=== PATIENT | male | born 1990 | race Two or more races ===

== ENCOUNTER 2022-03-17 14:06 | Emergency (ER) | payer MEDICAID, OTHER ==
[~2022-03-17] VITALS: Ht 170.2 cm; Wt 104.3 kg
--- NOTE | 2022-03-17 14:50 | NUR ---
BIBS W/ C/O DEPRESSION AND SUICIDAL IDEATION. 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 [facility]. CHANGED IN GOWN AND SECURITY CALLED FOR WANDING
[2022-03-17 15:07] LABS: BASOPHILS % (AUTO) 0.3 % (0.0-2.0); EOSINOPHILS % (AUTO) 0.7 % (0.0-6.0); HEMATOCRIT 48 % (39-51); HEMOGLOBIN 16.1 g/dL (13.5-17.5); LYMPHOCYTES # (AUTO) 1.9 K/uL (0.8-4.8); LYMPHOCYTES % (AUTO) 21.5 % (20.0-44.0); MEAN CORPUSCULAR HGB CONC 33 g/dl (31.0-36.0); MEAN CORPUSCULAR VOLUME 97 fL (80-96); MONOCYTES # (AUTO) 0.5 K/uL (0.1-1.30); MONOCYTES % (AUTO) 5.7 % (2.0-12.0); NEUTROPHILS # (AUTO) 6.4 K/uL (1.8-8.9); NEUTROPHILS % (AUTO) 71.8 % (43.0-81.0); PLATELET COUNT (AUTO) 376 K/uL (150-450); RED BLOOD CELL COUNT(AUTO) 4.97 MIL/uL (4.5-6.0); WHITE BLOOD COUNT (AUTO) 8.9 K/uL (4.3-11.0)
[2022-03-17 15:10] LABS: BILIRUBIN,URINE NEGATIVE (NEGATIVE); COLOR,URINE YELLOW (YELLOW); LEUKOCYTE ESTERASE ,URINE NEGATIVE (NEGATIVE); NITRITE, URINE NEGATIVE (NEGATIVE); PROTEIN,URINE NEGATIVE (NEGATIVE); UGLUCOSE NEGATIVE (NEGATIVE); UROBILINOGEN,URINE 0.2 EU/dL (0.2)
[2022-03-17 15:23] LABS: RBC,URINE 0-2 /HPF (0-2); WBC,URINE 0-2 /HPF (0-3)
[2022-03-17 15:24] LABS: BACTERIA,URINE 1+ /HPF (None Seen); COARSE GRANULAR CASTS,URINE Few /LPF (None Seen); SQUAMOUS EPITHELIAL CELL,UR Few /HPF (None Seen)
[2022-03-17 15:43] LABS: ALANINE AMINOTRANSFERASE 27 U/L (12-78); ALBUMIN 4.4 g/dL (3.4-5.0); ALCOHOL, BLOOD < 3 mg/dL (0-0); ALKALINE PHOSPHATASE 74 U/L (46-116); ASPARTATE AMINOTRANSFERASE 17 U/L (15-37); BILIRUBIN,DIRECT 0.1 mg/dL (0.0-0.2); BILIRUBIN,TOTAL 0.3 mg/dL (0.2-1.0); TOTAL PROTEIN, SERUM 7.9 g/dL (6.4-8.2)
[2022-03-17 15:47] LABS: CALCIUM, SERUM 9.1 mg/dL (8.5-10.1); CARBON DIOXIDE 28 mmol/L (21-32); CHLORIDE 104 mmol/L (98-107); GLUCOSE 84 mg/dL (74-106); POTASSIUM 3.9 mmol/L (3.5-5.1); SODIUM SERUM 141 mmol/L (136-145); UREA NITROGEN, BLOOD 16 mg/dL (7-18)
[2022-03-17 15:48] LABS: ACETAMINOPHEN 0 ug/ml (10-30)
--- NOTE | 2022-03-17 16:26 | NUR ---
ADI faxed clinicals to [facility] TEL:[phone] fax:[phone] for for voluntary psychiatric treatment at [facility] [[facility] [place] [address] FAX:[phone]].
--- NOTE | 2022-03-17 17:25 | NUR ---
CALL FROM ART,SRIRAM PATEL,ACCEPTED AT [facility] UNDER DR EDMOND, REPORT TO [phone]
--- NOTE | 2022-03-17 18:30 | NUR ---
PICKED UP BY TRANSPORTATION FOR [facility]. PT IN STABLE CONDITION.
[2022-03-17 18:40] VITALS: BP 137/84
== END 2022-03-17 18:40 ==
LOC: ER 14:08
DX: R45.851 Suicidal ideations (principal); F31.9 Bipolar disorder, unspecified; Z20.822 Contact with and (suspected) exposure to COVID-19
CPT/HCPCS: 99285; 85025; 80048; 80076; 81001; 36415; 87426; 80143; 80320; 80307; C9803; G0480

== ENCOUNTER 2022-04-14 16:39 | Emergency (ER) | payer SELFPAY ==
[~2022-04-14] VITALS: Ht 170.2 cm; Wt 125.2 kg
--- NOTE | 2022-04-14 17:01 | NUR ---
COVID SWAB COLLECTED AND SENT TO LAB
[2022-04-14 17:12] LABS: BASOPHILS % (AUTO) 0.5 % (0.0-2.0); EOSINOPHILS % (AUTO) 0.7 % (0.0-6.0); HEMATOCRIT 47 % (39-51); HEMOGLOBIN 16.3 g/dL (13.5-17.5); LYMPHOCYTES # (AUTO) 1.8 K/uL (0.8-4.8); LYMPHOCYTES % (AUTO) 20.1 % (20.0-44.0); MEAN CORPUSCULAR HGB CONC 34 g/dl (31.0-36.0); MEAN CORPUSCULAR VOLUME 94 fL (80-96); MONOCYTES # (AUTO) 0.7 K/uL (0.1-1.30); MONOCYTES % (AUTO) 7.5 % (2.0-12.0); NEUTROPHILS # (AUTO) 6.3 K/uL (1.8-8.9); NEUTROPHILS % (AUTO) 71.2 % (43.0-81.0); PLATELET COUNT (AUTO) 373 K/uL (150-450); RED BLOOD CELL COUNT(AUTO) 5.02 MIL/uL (4.5-6.0); WHITE BLOOD COUNT (AUTO) 8.9 K/uL (4.3-11.0)
[2022-04-14 17:31] LABS: ALANINE AMINOTRANSFERASE 36 U/L (12-78); ALBUMIN 4.1 g/dL (3.4-5.0); ALCOHOL, BLOOD < 3 mg/dL (0-0); ALKALINE PHOSPHATASE 86 U/L (46-116); ASPARTATE AMINOTRANSFERASE 16 U/L (15-37); BILIRUBIN,DIRECT 0.1 mg/dL (0.0-0.2); BILIRUBIN,TOTAL 0.4 mg/dL (0.2-1.0); CALCIUM, SERUM 8.9 mg/dL (8.5-10.1); CARBON DIOXIDE 27 mmol/L (21-32); CHLORIDE 104 mmol/L (98-107); CREATININE 1.2 mg/dL (0.6-1.3); GLUCOSE 85 mg/dL (74-106); POTASSIUM 3.7 mmol/L (3.5-5.1); SODIUM SERUM 137 mmol/L (136-145); TOTAL PROTEIN, SERUM 7.7 g/dL (6.4-8.2); UREA NITROGEN, BLOOD 14 mg/dL (7-18)
[2022-04-14 17:33] LABS: ACETAMINOPHEN 0 ug/ml (10-30)
--- NOTE | 2022-04-14 18:26 | NUR ---
URINE SAMPLE COLLECTED AND SENT TO LAB
[2022-04-14 19:07] LABS: BILIRUBIN,URINE NEGATIVE (NEGATIVE); COLOR,URINE YELLOW (YELLOW); LEUKOCYTE ESTERASE ,URINE NEGATIVE (NEGATIVE); NITRITE, URINE NEGATIVE (NEGATIVE); PROTEIN,URINE NEGATIVE (NEGATIVE); UGLUCOSE NEGATIVE (NEGATIVE); UROBILINOGEN,URINE 0.2 EU/dL (0.2)
[2022-04-14 19:28] LABS: BACTERIA,URINE Rare /HPF (None Seen); MUCUS,URINE Moderate /LPF (None Seen); SQUAMOUS EPITHELIAL CELL,UR Few /HPF (None Seen)
--- NOTE | 2022-04-14 19:32 | NUR ---
BIBS C/O SI AND DEPRESSION WITH PLAN TO CUT WRISTS. PT AWAKE AND ALERT CHANGED INTO GOWN AND WANDED BY SECURITY. SAFETY MEASURES IN PLACE.
--- NOTE | 2022-04-14 19:39 | NUR ---
FAXED FACE SHEET AND CLINICALS TO [facility] INTAKE
--- NOTE | 2022-04-15 11:22 | NUR ---
SW notified that pt. has no insurance. ADI called admitting about possibly getting pt. presumptive [facility]AL. Admitting stated they will follow up.
--- NOTE | 2022-04-15 12:37 | NUR ---
ADI faxed clinicals to [facility]: tel:[phone] FAX:[phone] as madeleine take out of [facility]. [facility]
--- NOTE | 2022-04-15 15:28 | NUR ---
SS consult: SS consult requested for SI. The pt. is a 32 year old Black male who presents to the ED requesting voluntary admission to a psych hospital. Pt. was referred to [facility] and [facility] but not accepted. ADI met with pt. and discussed this. The pt. is alert & oriented x 4 and makes good eye contact. The pt. states he is currently not feeling suicidal at this time. Pt. denies HI and denies hallucinations. Pt. has fair insight & fair judgement. The pt. states he is originally from [facility] and came to [place] because he was staying with a friend. Pt. states he plans to return to [facility]. ADI explored pt.'s mental health Hx. Pt. states he has been disgnosed with Schizophrenia and PTSD in the past and has been prescribed Wellbutrin and Gabapentin and he is compliant with his medication. SW explored pt. drug & ETOH use and pt. denies any drug or alcohol use. Pt. states he is ambulatory and independent with all his ADL's and he has friends who are his support system. Pt. denies receiving financial assitance of any kind. Pt. states if he leaves today he mohan not believe he will hurt himself. SAFETY PLAN: SW made safety plan with pt. and discussed ways to seek for help if pt. does not feel safe. Pt. states that if he begins to feel unsafe he will call "911" or go to the nearest hospital. Pt. has a cellphone to possibly make said call. DC plan: Pt. will be heading to [facility] and pt. was provided with TAP card for 24 hour bus transportation. ADI provided pt. with mental health, crisis hotlines and homeless resources and pt. refused them. Pt. signed homeless waiver and it was placed in the pt.'s chart. ADI discussed case with , RICK HUI. Resources offered include: Year-round shelters: [place] [facility] [address] [place] [address] ; [place] [facility] [address] [place] [address]; [place] [facility] [address] [facility] [address] Hygiene: [facility]: [address] [place] ; [facility] [address] [facility] [place] ; [facility] [address] [facility] . Food Resources: [place] [facility] at [facility]- [address] [place]; Meet Each Need with Dignity ([facility]) [address] [facility]; [facility] Food [facility] [address] [facility]; [facility] 9576 [facility]. Mental Health resources provided: [facility] [address] [place], [place] [address] ; [facility] [address] [facility] [address], [place], [place] [id number] ; [facility] [address] [facility] [place], [place] [id number] ; [facility] [address] [place], [place] [id number] Healthcare Clinics: [facility] [address] [facility], [address] [place]. [place] ; [facility] [address] [facility] [address] [place] [address]; [facility] [place] [address] [place] [phone]) [phone] Counseling--Outpatient [facility] [address] [facility], [place] [address] (Specializes in in-depth psychotherapy for emotional distress: anxiety, depression, interpersonal conflicts, life transitions, childhood abuse) [facility] [address] [place] [address] (Assist with solving problem marital difficulties, separation & divorce, aging parents, & grief, chronic & terminal illness) [facility] [address] [place] [address] (Deal with loss & grief, anxiety, marital difficulties) Homebound/Mental Health Services [address] [facility], [address] [place] [address] (Provide in-home mental services to people who are incapable of leaving their homes) [facility] Elder[facility] Senior Service/Resource Center [address] [place] [address] [facility] [address] [place] [address] PSYCHIATRIC OUTPATIENT SERVICES [facility] Partial Hospitalization and Intensive Outpatient Program (Managed Care and [place] Only)[address] [facility] [phone] [facility] Partial Hospitalization and Outpatient Dhelryu[address] [facility] [address] [place], [place] [phone] [facility], [facility] Health U[place]es Nzv[address] [facility] [address] [place], [place] [phone] [facility] Partial Hospitalization and Outpatient Pqjrkth[address] [place], [phone] Substance Abuse resources provided included: [facility] Substance Abuse Self-Helpline ([facility]) ; [facility] [address] [facility] [place] [address] ; [facility] [address] [facility] [address] ; [facility] Rehabilitation Program [address] [facility] [address] [address] ; [facility] [address] [facility] [address] ; [facility] [address] [facility] [address] ; [facility] [address] [facility] [address] ; [facility] Substance Abuse Helpline([facility])-[facility] ; [facility] ; [facility]; [facility] [place]; [facility] [place]; [facility] Jhon Strong; [facility] [place]; [facility]; [facility] [place]; [facility]. [place]; Alcoholics Anonymous -SFV; Qi-Zbfb-Zmcmkka ; Marijuana Anonymous -SFV; Narcotics Anonymous www.na.org;
--- NOTE | 2022-04-15 15:34 | NUR ---
pt was seen by social services designee keisha re evaluated by dr lujan medically cleared. pt requested to be discharged after being observed for 22 hours. discharged in stable condition.
[2022-04-15 15:38] VITALS: BP 137/59
== END 2022-04-15 15:39 | disposition home or self-care (01) ==
LOC: ER 16:42
DX: R45.851 Suicidal ideations (principal); Z20.822 Contact with and (suspected) exposure to COVID-19; F31.9 Bipolar disorder, unspecified; F12.90 Cannabis use, unspecified, uncomplicated
CPT/HCPCS: 99285; 85025; 80048; 87086; 80076; 81001; 36415; 87426; 80143; 80320; 80307; C9803; G0480

== ENCOUNTER 2022-05-18 04:11 | Emergency (ER) | payer MEDICAID ==
[~2022-05-18] VITALS: Ht 172.7 cm; Wt 102.1 kg
--- NOTE | 2022-05-18 06:50 | NUR ---
BIBSELF FROM FRIEND'S PLACE C/O SI WITH PLAN TO SLIT WRISTS. REQUESTING VOLUNTARY ADMIT TO [facility]. PT A/OX4. TOLERATING R/A WELL WITH NO SOB. HAS RESTRAINING ORDER DEVICE ON LEFT ANKLE. PT AMB WITH STEADY GAIT. CHANGED IN GOWN, BELONGINGS COLLECTED AND PLACED IN LOCKER. SECURITY AT PT'S BEDSIDE FOR WANDING. SAFETY MEASURES IN PLACE.
--- NOTE | 2022-05-18 07:00 | NUR ---
COVID ANTIGEN SWAB AND URINE COLLECTED AND SENT TO LAB
--- NOTE | 2022-05-18 07:03 | NUR ---
DR. JASON SPAIN AT PT'S BEDSIDE FOR EVAL
--- NOTE | 2022-05-18 07:20 | NUR ---
DECORATOR LIGHTING FIXTURES AT PT'S BEDSIDE
[2022-05-18 07:33] LABS: BASOPHILS % (AUTO) 0.3 % (0.0-2.0); EOSINOPHILS % (AUTO) 0.2 % (0.0-6.0); HEMATOCRIT 48 % (39-51); HEMOGLOBIN 16.2 g/dL (13.5-17.5); LYMPHOCYTES % (AUTO) 9.8 % (20.0-44.0); MEAN CORPUSCULAR HGB CONC 34 g/dl (31.0-36.0); MEAN CORPUSCULAR VOLUME 96 fL (80-96); MONOCYTES # (AUTO) 0.4 K/uL (0.1-1.30); MONOCYTES % (AUTO) 4.2 % (2.0-12.0); NEUTROPHILS % (AUTO) 85.5 % (43.0-81.0); PLATELET COUNT (AUTO) 396 K/uL (150-450); RED BLOOD CELL COUNT(AUTO) 4.97 MIL/uL (4.5-6.0); WHITE BLOOD COUNT (AUTO) 10.6 K/uL (4.3-11.0)
[2022-05-18 07:51] LABS: BILIRUBIN,URINE NEGATIVE (NEGATIVE); COLOR,URINE YELLOW (YELLOW); LEUKOCYTE ESTERASE ,URINE NEGATIVE (NEGATIVE); NITRITE, URINE NEGATIVE (NEGATIVE); PROTEIN,URINE NEGATIVE (NEGATIVE); UGLUCOSE NEGATIVE (NEGATIVE); UROBILINOGEN,URINE 0.2 EU/dL (0.2)
[2022-05-18 08:02] LABS: CARBON DIOXIDE 25 mmol/L (21-32); CHLORIDE 104 mmol/L (98-107); GLUCOSE 108 mg/dL (74-106); POTASSIUM 3.6 mmol/L (3.5-5.1); SODIUM SERUM 136 mmol/L (136-145); UREA NITROGEN, BLOOD 13 mg/dL (7-18)
[2022-05-18 08:07] LABS: ALANINE AMINOTRANSFERASE 33 U/L (12-78); ALBUMIN 4.2 g/dL (3.4-5.0); ALCOHOL, BLOOD < 3 mg/dL (0-0); ALKALINE PHOSPHATASE 75 U/L (46-116); ASPARTATE AMINOTRANSFERASE 20 U/L (15-37); BILIRUBIN,DIRECT 0.1 mg/dL (0.0-0.2); BILIRUBIN,TOTAL 0.4 mg/dL (0.2-1.0); TOTAL PROTEIN, SERUM 7.6 g/dL (6.4-8.2)
[2022-05-18 08:10] LABS: ACETAMINOPHEN < 10 ug/ml (10-30)
[2022-05-18 08:35] LABS: BACTERIA,URINE Few /HPF (None Seen); SQUAMOUS EPITHELIAL CELL,UR Moderate /HPF (None Seen); WBC,URINE 0-2 /HPF (0-3)
--- NOTE | 2022-05-18 08:40 | NUR ---
WARM BLANKET PROVIDED TO PT; PT AMBULATORY W/ STEADY GAIT, NOT IN ACUTE DISTRESS
--- NOTE | 2022-05-18 10:27 | NUR ---
ADI faxed clinicals to [facility] TEL:[phone] fax:[phone] for voluntary psychiatric treatment at [facility] [[facility] [place] [address] FAX:[phone]].
--- NOTE | 2022-05-18 13:20 | NUR ---
PT ACCEPTED AT [facility] UNDER CARE OF DR EDMOND TRANSPORTATION ARRANGED BY HOSPITAL, ETA 2PM NUMBER FOR REPORT: [phone]
--- NOTE | 2022-05-18 13:30 | NUR ---
PT REPORT GIVEN TO CHARGE NURSE AT [facility].
--- NOTE | 2022-05-18 13:31 | NUR ---
TRANSPORTATION AT BEDSIDE TO PICKUP PT
[2022-05-18 13:38] VITALS: BP 133/80
== END 2022-05-18 13:38 ==
LOC: ER 04:13
DX: R45.851 Suicidal ideations (principal); Z59.01 Sheltered homelessness; F31.9 Bipolar disorder, unspecified; Z20.822 Contact with and (suspected) exposure to COVID-19; R03.0 Elevated blood-pressure reading, without diagnosis of hypertension; Z91.51 Personal history of suicidal behavior
CPT/HCPCS: 99285; 85025; 80048; 80076; 81001; 36415; 87426; 80143; 80320; 80307; C9803; G0480

== ENCOUNTER 2022-05-27 22:15 | Emergency (ER) | payer MEDICAID ==
[~2022-05-27] VITALS: Ht 172.7 cm; Wt 108.9 kg
[2022-05-28 00:22] VITALS: BP 144/87
--- NOTE | 2022-05-28 00:22 | NUR ---
BIBS C/O SI W/ PLAN TO CUT WRIST, WOULD LIKE VOLUNTARY ADMISSION TO [facility]. PT A/OX3. PT IN GOWN, BELONGINGS PLACED IN, AND WANDED BY SECURITY. TOLERATING R/A WELL WITH NO RESP DISTRESS. SAFETY MEASURES IN PLACE.
[2022-05-28 01:31] LABS: BASOPHILS % (AUTO) 0.3 % (0.0-2.0); EOSINOPHILS % (AUTO) 1.4 % (0.0-6.0); HEMATOCRIT 45 % (39-51); HEMOGLOBIN 14.8 g/dL (13.5-17.5); LYMPHOCYTES # (AUTO) 2.6 K/uL (0.8-4.8); MEAN CORPUSCULAR HGB CONC 33 g/dl (31.0-36.0); MEAN CORPUSCULAR VOLUME 98 fL (80-96); MONOCYTES # (AUTO) 0.6 K/uL (0.1-1.30); MONOCYTES % (AUTO) 7.3 % (2.0-12.0); NEUTROPHILS # (AUTO) 5.1 K/uL (1.8-8.9); PLATELET COUNT (AUTO) 338 K/uL (150-450); RED BLOOD CELL COUNT(AUTO) 4.65 MIL/uL (4.5-6.0); WHITE BLOOD COUNT (AUTO) 8.4 K/uL (4.3-11.0)
[2022-05-28 01:46] LABS: CALCIUM, SERUM 8.3 mg/dL (8.5-10.1); CARBON DIOXIDE 30 mmol/L (21-32); CHLORIDE 103 mmol/L (98-107); GLUCOSE 107 mg/dL (74-106); POTASSIUM 3.6 mmol/L (3.5-5.1); SODIUM SERUM 138 mmol/L (136-145); UREA NITROGEN, BLOOD 14 mg/dL (7-18)
[2022-05-28 01:51] LABS: ALANINE AMINOTRANSFERASE 34 U/L (12-78); ALBUMIN 3.9 g/dL (3.4-5.0); ALCOHOL, BLOOD < 3 mg/dL (0-0); ALKALINE PHOSPHATASE 68 U/L (46-116); ASPARTATE AMINOTRANSFERASE 25 U/L (15-37); BILIRUBIN,DIRECT 0.1 mg/dL (0.0-0.2); BILIRUBIN,TOTAL 0.2 mg/dL (0.2-1.0); TOTAL PROTEIN, SERUM 7.2 g/dL (6.4-8.2)
[2022-05-28 01:53] LABS: ACETAMINOPHEN 0 ug/ml (10-30)
[2022-05-28 02:43] LABS: BILIRUBIN,URINE NEGATIVE (NEGATIVE); COLOR,URINE YELLOW (YELLOW); LEUKOCYTE ESTERASE ,URINE NEGATIVE (NEGATIVE); NITRITE, URINE NEGATIVE (NEGATIVE); PH,URINE 7.5 (5.0-8.0); PROTEIN,URINE TRACE mg/dl (NEGATIVE); UGLUCOSE NEGATIVE (NEGATIVE); UROBILINOGEN,URINE 0.2 EU/dL (0.2)
[2022-05-28 03:00] LABS: BACTERIA,URINE Rare /HPF (None Seen); MUCUS,URINE Many /LPF (None Seen); RBC,URINE 0-2 /HPF (0-2); SQUAMOUS EPITHELIAL CELL,UR Few /HPF (None Seen); WBC,URINE 0-2 /HPF (0-3)
--- NOTE | 2022-05-28 03:33 | NUR ---
FACESHEET AND CLINICALS FAXED TO [facility].
--- NOTE | 2022-05-28 04:20 | NUR ---
PER [facility] INTAKE ACCEPTING PHYSICIAN DR. EDMOND. CALL FOR REPORT [phone] [address]
--- NOTE | 2022-05-28 04:26 | NUR ---
REPORT GIVEN TO SAI LOPEZ FROM [facility] FOR [facility]
--- NOTE | 2022-05-28 04:32 | NUR ---
[facility] CALLED FOR BLS GOING TO [facility] ETA - 10 MIN
--- NOTE | 2022-05-28 04:50 | NUR ---
REPORT GIVEN TO [facility] AND EMT AT PT'S BEDSIDE FOR PT TO TRANSFER TO [facility]. ALL BELONGINGS WITH [facility]. VSS.
== END 2022-05-28 04:52 ==
LOC: ER 22:16
DX: R45.851 Suicidal ideations (principal); Z59.01 Sheltered homelessness; Z20.822 Contact with and (suspected) exposure to COVID-19; F31.9 Bipolar disorder, unspecified; F43.10 Post-traumatic stress disorder, unspecified
CPT/HCPCS: 99285; 85025; 80048; 80076; 81001; 36415; 87426; 80143; 80320; 80307; C9803; G0480

== ENCOUNTER 2022-06-05 03:53 | Emergency (ER) | payer MEDICAID ==
--- NOTE | 2022-06-05 04:15 | NUR ---
PATIENT CALLED TO [facility] NO ANSWER
--- NOTE | 2022-06-05 04:37 | NUR ---
PATIENT CALLED TO [facility] NO ANSWER Addendum: 06/05/22 at 0546 by ELIANE PATIENT CALLED TO TRIAGE NO ANSWER
--- NOTE | 2022-06-05 05:57 | NUR ---
PATIENT CALLED TO TRIAGE NO ANSWER
== END 2022-06-05 06:11 | disposition left against medical advice (07) ==
LOC: ER 03:55
DX: Z53.21 Procedure and treatment not carried out due to patient leaving prior to being seen by health care provider (principal)